=== PATIENT | female | born 1990 | race African-American/Black ===

== ENCOUNTER → 2016-10-09 | Outpatient (REF) | payer OTHER | LOC: M SFHCLERA 10:40 | PROVIDERS: ATTEND Family Medicine | DX: N93.9 Abnormal uterine and vaginal bleeding, unspecified (principal) ==

== ENCOUNTER → 2016-10-26 | Outpatient (CLI) | payer OTHER ==
--- NOTE | 2016-10-26 15:36 | REP ---
PELVIC ULTRASOUND: Real-time sonographic evaluation of the pelvis is performed utilizing transabdominal and endovaginal technique. Bladder measures 11.9 x 7.9 x 10.6 cm. The uterus measures 8.1 x 3.5 x 5.3 cm. Endometrial stripe measures 12 mm in AP dimension. There is no endometrial fluid collection. Right ovary measures 3.9 x 2.3 x 3.6 cm and left ovary 3.4 x 1.8 x 2.5 cm. There are multiple small follicles in each ovary, less than 1 cm in diameter, peripherally located. There are a greater number of follicles in the right ovary than the left. There is blood flow seen in each ovary with duplex Doppler evaluation, with no torsion. There is no adnexal mass or free fluid. IMPRESSION: Endometrial thickness 12 mm. No endometrial fluid collection. Multiple subcentimeter follicles in each ovary, right more so than the left, peripherally located, possibly indicating polycystic ovaries. Please correlate clinically. Signed by Nickolas Burnham MD 10/27/2016 03:17 P
== END ==
LOC: M LRY 13:41
PROVIDERS: ATTEND Family Medicine
DX: N93.9 Abnormal uterine and vaginal bleeding, unspecified (principal)

== ENCOUNTER 2017-03-23 09:31 | Emergency (ER) | payer OTHER ==
[~2017-03-23] VITALS: Ht 160 cm; Wt 74.2 kg
[2017-03-23 09:32] VITALS: BP 131/78
== END 2017-03-23 10:14 | disposition home or self-care (01) ==
LOC: M ED 09:31
DX: S30.854A Superficial foreign body of vagina and vulva, initial encounter (principal); X58.XXXA Exposure to other specified factors, initial encounter; Y92.89 Other specified places as the place of occurrence of the external cause; Y93.89 Activity, other specified; Y99.8 Other external cause status